=== PATIENT | male | born 1995 | race Caucasian/White ===

== ENCOUNTER → 2016-11-06 | Outpatient (REF) | payer OTHER ==
[~2016-11-06] MED LIST: ACET65TA OR; ALLE25CA OR; CETI10TA OR; VICO5TAB OR
[2016-11-06 14:20] LABS: HIV SCREEN CENTAUR NEGATIVE (NEGATIVE)
[2016-11-09 00:08] LABS: HSV TYPE I IgM AB <1:10 titer (<1:10); HSV TYPE II IgM ABY <1:10 titer (<1:10)
== END ==
LOC: M SFHCPLAZ 09:38
PROVIDERS: ATTEND Physician Assistant
DX: Z20.2 Contact with and (suspected) exposure to infections with a predominantly sexual mode of transmission (principal)

== ENCOUNTER → 2017-09-18 | Outpatient (CLI) | payer OTHER | LOC: M OUTALCOH 07:47 | DX: F15.20 Other stimulant dependence, uncomplicated (principal) ==

== ENCOUNTER 2017-09-28 08:30 | Outpatient (RCR) | payer OTHER | END 2017-10-03 | LOC: M OUTALCOH 08:30 | DX: F15.20 Other stimulant dependence, uncomplicated (principal); Z72.0 Tobacco use ==

== ENCOUNTER 2017-10-05 09:25 | Outpatient (RCR) | payer OTHER | END 2017-11-03 | LOC: M OUTALCOH 10-10 08:45 | DX: F15.20 Other stimulant dependence, uncomplicated (principal); Z72.0 Tobacco use ==

== ENCOUNTER 2017-11-05 11:15 | Outpatient (RCR) | payer OTHER | END 2017-12-03 | LOC: M OUTALCOH 11-07 16:00 | DX: F15.20 Other stimulant dependence, uncomplicated (principal); Z72.0 Tobacco use ==

== ENCOUNTER → 2017-11-20 | Outpatient (REF) | payer OTHER ==
[2017-11-20 13:18] LABS: AMPHETAMINES URINE REFLEX NEGATIVE (NEGATIVE); BARBITURATES URINE REFLEX NEGATIVE (NEGATIVE); BENZODIAZEPINES URINE REFLEX NEGATIVE (NEGATIVE); CANNABINOIDS URINE REFLEX NEGATIVE (NEGATIVE); COCAINE METABOLITE URINE REFLE NEGATIVE (NEGATIVE); METHADONE URINE REFLEX NEGATIVE (NEGATIVE); OPIATES URINE REFLEX NEGATIVE (NEGATIVE); PHENCYCLIDINE URINE REFLEX NEGATIVE (NEGATIVE)
== END ==
LOC: M OUTALCOH 12:27
DX: F15.20 Other stimulant dependence, uncomplicated (principal)

== ENCOUNTER 2017-12-05 10:01 | Outpatient (RCR) | payer OTHER | END 2018-01-03 | LOC: M OUTALCOH 12-12 16:00 | DX: F15.20 Other stimulant dependence, uncomplicated (principal); Z72.0 Tobacco use ==

== ENCOUNTER → 2017-12-18 | Outpatient (REF) | payer OTHER ==
[2017-12-19 10:58] LABS: AMPHETAMINES URINE REFLEX NEGATIVE (NEGATIVE); BARBITURATES URINE REFLEX NEGATIVE (NEGATIVE); BENZODIAZEPINES URINE REFLEX NEGATIVE (NEGATIVE); CANNABINOIDS URINE REFLEX NEGATIVE (NEGATIVE); COCAINE METABOLITE URINE REFLE NEGATIVE (NEGATIVE); METHADONE URINE REFLEX NEGATIVE (NEGATIVE); OPIATES URINE REFLEX NEGATIVE (NEGATIVE); PHENCYCLIDINE URINE REFLEX NEGATIVE (NEGATIVE)
== END ==
LOC: M OUTALCOH 10:20
DX: F15.20 Other stimulant dependence, uncomplicated (principal)

== ENCOUNTER → 2018-01-07 | Outpatient (REF) | payer OTHER ==
[2018-01-08 12:54] LABS: AMPHETAMINES URINE REFLEX NEGATIVE (NEGATIVE); BARBITURATES URINE REFLEX NEGATIVE (NEGATIVE); BENZODIAZEPINES URINE REFLEX NEGATIVE (NEGATIVE); CANNABINOIDS URINE REFLEX NEGATIVE (NEGATIVE); COCAINE METABOLITE URINE REFLE NEGATIVE (NEGATIVE); METHADONE URINE REFLEX NEGATIVE (NEGATIVE); OPIATES URINE REFLEX NEGATIVE (NEGATIVE); PHENCYCLIDINE URINE REFLEX NEGATIVE (NEGATIVE)
== END ==
LOC: M OUTALCOH 01-08 11:58
DX: F15.20 Other stimulant dependence, uncomplicated (principal)

== ENCOUNTER 2018-01-09 14:05 | Outpatient (RCR) | payer OTHER | END 2018-02-02 | LOC: M OUTALCOH 01-23 15:00 | DX: F15.20 Other stimulant dependence, uncomplicated (principal); Z72.0 Tobacco use ==

== ENCOUNTER 2018-02-08 11:20 | Outpatient (RCR) | payer OTHER | END 2018-03-05 | LOC: M OUTALCOH 02-13 15:00 | DX: F15.20 Other stimulant dependence, uncomplicated (principal); Z72.0 Tobacco use ==

== ENCOUNTER → 2018-05-01 | Outpatient (CLI) | payer OTHER | LOC: M OUTALCOH 08:20 | DX: Z13.89 Encounter for screening for other disorder (principal); F11.20 Opioid dependence, uncomplicated; F14.20 Cocaine dependence, uncomplicated; F15.20 Other stimulant dependence, uncomplicated ==

== ENCOUNTER 2018-05-09 14:00 | Outpatient (RCR) | payer OTHER | END 2018-06-05 | LOC: M OUTALCOH 05-14 09:00 | DX: F15.20 Other stimulant dependence, uncomplicated (principal); F11.20 Opioid dependence, uncomplicated; Z72.0 Tobacco use ==

== ENCOUNTER → 2018-05-23 | Outpatient (REF) | payer OTHER ==
[2018-05-23 17:38] LABS: CHOLESTEROL LEVEL 189 MG/DL (<200); CHOLESTEROL RISK RATIO 4.021 (<5); HDL CHOLESTEROL 47 MG/DL (>40); LDL CHOLESTEROL 131 MG/DL (<100); NON-HDL-C 142 MG/DL; TRIGLYCERIDES LEVEL 53 MG/DL (<150)
[2018-05-23 17:58] LABS: ESTIMATED AVERAGE GLUCOSE 103 MG/DL (60-110); HEMOGLOBIN A1c 5.2 %
== END ==
LOC: M SFHCPLAZ 15:05
DX: Z13.1 Encounter for screening for diabetes mellitus (principal); Z13.220 Encounter for screening for lipoid disorders

== ENCOUNTER 2018-06-06 16:46 | Outpatient (RCR) | payer OTHER | END 2018-07-05 | LOC: M OUTALCOH 16:46 | DX: F15.20 Other stimulant dependence, uncomplicated (principal); F11.20 Opioid dependence, uncomplicated; Z72.0 Tobacco use ==

== ENCOUNTER 2018-08-01 13:59 | Outpatient (RCR) | payer OTHER | END 2018-08-05 | LOC: M OUTALCOH 13:59 | PROVIDERS: ATTEND Psychiatry & Neurology Psychiatry | DX: F15.20 Other stimulant dependence, uncomplicated (principal); F11.20 Opioid dependence, uncomplicated; Z72.0 Tobacco use ==

== ENCOUNTER → 2018-09-05 | Outpatient (RCR) | payer OTHER | LOC: M OUTALCOH 08-07 13:59 | PROVIDERS: ATTEND Psychiatry & Neurology Psychiatry | DX: F15.20 Other stimulant dependence, uncomplicated (principal); F11.20 Opioid dependence, uncomplicated; Z72.0 Tobacco use ==

== ENCOUNTER 2018-10-02 16:00 | Outpatient (RCR) | payer OTHER | END 2018-10-03 | LOC: M OUTALCOH 16:00 | PROVIDERS: ATTEND Psychiatry & Neurology Psychiatry | DX: F15.20 Other stimulant dependence, uncomplicated (principal); F11.20 Opioid dependence, uncomplicated; Z72.0 Tobacco use ==

== ENCOUNTER 2018-10-30 16:00 | Outpatient (RCR) | payer OTHER | END 2018-11-03 | LOC: M OUTALCOH 16:00 | PROVIDERS: ATTEND Psychiatry & Neurology Psychiatry | DX: F15.20 Other stimulant dependence, uncomplicated (principal); F11.20 Opioid dependence, uncomplicated; Z72.0 Tobacco use ==

== ENCOUNTER 2018-12-02 14:53 | Outpatient (RCR) | payer OTHER | END 2018-12-03 | LOC: M OUTALCOH 14:53 | PROVIDERS: ATTEND Psychiatry & Neurology Psychiatry | DX: F15.20 Other stimulant dependence, uncomplicated (principal); F11.20 Opioid dependence, uncomplicated; Z72.0 Tobacco use ==

== ENCOUNTER 2019-01-02 16:00 | Outpatient (RCR) | payer OTHER | END 2019-01-03 | LOC: M OUTALCOH 16:00 | PROVIDERS: ATTEND Psychiatry & Neurology Psychiatry | DX: F15.20 Other stimulant dependence, uncomplicated (principal); F11.20 Opioid dependence, uncomplicated; Z72.0 Tobacco use ==

== ENCOUNTER 2019-01-30 15:36 | Outpatient (RCR) | payer OTHER | END 2019-02-02 | LOC: M OUTALCOH 15:36 | PROVIDERS: ATTEND Psychiatry & Neurology Psychiatry | DX: F15.20 Other stimulant dependence, uncomplicated (principal); F11.20 Opioid dependence, uncomplicated; Z72.0 Tobacco use ==

== ENCOUNTER 2019-02-27 16:00 | Outpatient (RCR) | payer OTHER | END 2019-03-05 | LOC: M OUTALCOH 16:00 | PROVIDERS: ATTEND Psychiatry & Neurology Psychiatry | DX: F11.20 Opioid dependence, uncomplicated (principal) ==

== ENCOUNTER 2019-04-03 15:46 | Outpatient (RCR) | payer OTHER | END 2019-04-05 | LOC: M OUTALCOH 15:46 | PROVIDERS: ATTEND Psychiatry & Neurology Psychiatry | DX: F11.20 Opioid dependence, uncomplicated (principal) ==

== ENCOUNTER → 2019-05-13 | Outpatient (REF) | payer OTHER ==
[2019-05-13 18:28] LABS: CHOLESTEROL LEVEL 155 MG/DL (<200); CHOLESTEROL RISK RATIO 2.818 (<5); HDL CHOLESTEROL 55 MG/DL (>40); LDL CHOLESTEROL 82 MG/DL (<100); NON-HDL-C 100 MG/DL; TRIGLYCERIDES LEVEL 90 MG/DL (<150)
[2019-05-13 19:21] LABS: HEMOGLOBIN A1c 5.6 %
[2019-05-13 20:35] LABS: CHLAMYDIA DNA AMPLIFICATION NEGATIVE (NEGATIVE); GC DNA AMPLIFICATION NEGATIVE (NEGATIVE)
[2019-05-14 09:16] LABS: HEPATITIS B SURFACE ANTIGEN NEGATIVE (NEGATIVE)
[2019-05-14 09:47] LABS: HEPATITIS C VIRUS ABY INDEX 0.1 INDEX (<0.8); HIV 1&2 SCREEN CENTAUR NEGATIVE (NEGATIVE)
== END ==
LOC: M SFHCPLAZ 15:54
PROVIDERS: ATTEND Family Medicine
DX: Z13.1 Encounter for screening for diabetes mellitus (principal); Z20.2 Contact with and (suspected) exposure to infections with a predominantly sexual mode of transmission; Z13.220 Encounter for screening for lipoid disorders

== ENCOUNTER → 2019-08-14 | Outpatient (CLI) | payer OTHER ==
[2019-08-15 18:22] LABS: HIV 1&2 SCREEN CENTAUR NEGATIVE (NEGATIVE)
[2019-08-18 00:06] LABS: HSV-1 DNA Negative (Negative); HSV-2 DNA Negative (Negative)
== END ==
LOC: M PLALAB 14:52
PROVIDERS: ATTEND Student in an Organized Health Care Education/Training Program
DX: Z11.3 Encounter for screening for infections with a predominantly sexual mode of transmission (principal); Z72.53 High risk bisexual behavior

== ENCOUNTER → 2019-08-14 | Outpatient (REF) | payer OTHER ==
[2019-08-14 21:29] LABS: CHLAMYDIA DNA AMPLIFICATION NEGATIVE (NEGATIVE); GC DNA AMPLIFICATION NEGATIVE (NEGATIVE)
[2019-08-19 00:06] LABS: CHLAMYDIA PHARYNGEAL APTIMA Negative (Negative); CHLAMYDIA RECTAL APTIMA Negative (Negative); GC PHARYNGEAL APTIMA Negative (Negative); GC RECTAL APTIMA Negative (Negative)
== END ==
LOC: M SFHCPLAZ 14:42
DX: Z11.3 Encounter for screening for infections with a predominantly sexual mode of transmission (principal); Z72.53 High risk bisexual behavior

== ENCOUNTER → 2019-10-08 | Outpatient (REF) | payer OTHER ==
[2019-10-08 15:03] LABS: CHLAMYDIA DNA AMPLIFICATION NEGATIVE (NEGATIVE); GC DNA AMPLIFICATION NEGATIVE (NEGATIVE)
== END ==
LOC: M SFHCPLAZ 09:06
PROVIDERS: ATTEND Family Medicine
DX: Z11.3 Encounter for screening for infections with a predominantly sexual mode of transmission (principal)

== ENCOUNTER → 2019-11-17 | Outpatient (REF) | payer OTHER ==
[2019-11-17 15:06] LABS: CHLAMYDIA DNA AMPLIFICATION NEGATIVE (NEGATIVE); GC DNA AMPLIFICATION NEGATIVE (NEGATIVE); HIV 1&2 SCREEN CENTAUR NEGATIVE (NEGATIVE)
== END ==
LOC: M SFHCPLAZ 11:27
PROVIDERS: ATTEND Student in an Organized Health Care Education/Training Program
DX: Z20.2 Contact with and (suspected) exposure to infections with a predominantly sexual mode of transmission (principal)

== ENCOUNTER → 2020-09-18 | Outpatient (REF) | payer OTHER ==
[2020-09-18 19:21] LABS: CHLAMYDIA DNA AMPLIFICATION NEGATIVE (NEGATIVE); GC DNA AMPLIFICATION NEGATIVE (NEGATIVE)
== END ==
LOC: M LAB REF 17:12
PROVIDERS: ATTEND Physician Assistant
DX: K62.9 Disease of anus and rectum, unspecified (principal); Z72.52 High risk homosexual behavior

== ENCOUNTER → 2020-09-21 | Outpatient (REF) | payer OTHER ==
[2020-09-23 05:10] LABS: CHLAMYDIA RECTAL APTIMA Positive (Negative); GC RECTAL APTIMA Negative (Negative)
== END ==
LOC: M WUC 09:15
PROVIDERS: ATTEND Physician Assistant
DX: K62.9 Disease of anus and rectum, unspecified (principal); Z72.52 High risk homosexual behavior

== ENCOUNTER → 2020-09-27 | Outpatient (REF) | payer OTHER ==
[2020-10-01 07:10] LABS: CHLAMYDIA RECTAL APTIMA Positive (Negative); GC RECTAL APTIMA Negative (Negative)
== END ==
LOC: M SFHCPLAZ 14:30
PROVIDERS: ATTEND Student in an Organized Health Care Education/Training Program
DX: A64 Unspecified sexually transmitted disease (principal)

== ENCOUNTER → 2020-09-27 | Outpatient (REF) | payer OTHER ==
[2020-09-27 18:57] LABS: HEPATITIS B SURFACE ANTIBODY POSITIVE (POSITIVE); HEPATITIS B SURFACE ANTIGEN NEGATIVE (NEGATIVE); HIV 1&2 SCREEN CENTAUR NEGATIVE (NEGATIVE)
== END ==
LOC: M SFHCPLAZ 14:48
PROVIDERS: ATTEND Family Medicine
DX: A64 Unspecified sexually transmitted disease (principal)

== ENCOUNTER → 2020-11-09 | Outpatient (CLI) | payer OTHER ==
[2020-11-12 10:08] LABS: CHLAMYDIA RECTAL APTIMA Negative (Negative); GC RECTAL APTIMA Negative (Negative)
== END ==
LOC: M WUC 14:13
PROVIDERS: ATTEND Physician Assistant
DX: K62.9 Disease of anus and rectum, unspecified (principal); Z72.52 High risk homosexual behavior

== ENCOUNTER → 2021-04-17 | Outpatient (REF) | payer OTHER | LOC: M WUC 17:31 | PROVIDERS: ATTEND Physician Assistant | DX: Z72.52 High risk homosexual behavior (principal) ==

== ENCOUNTER → 2021-04-28 | Outpatient (CLI) | payer BC, OTHER ==
[2021-04-28 13:34] LABS: ALBUMIN 3.6 GM/DL (3.2-5.2); ALT/SGPT 115 U/L (12-78); BILIRUBIN,DIRECT 0.1 MG/DL (0.0-0.2); BILIRUBIN,TOTAL 0.3 MG/DL (0.2-1.0); TOTAL PROTEIN 6.6 GM/DL (6.4-8.2)
[2021-04-28 13:53] LABS: HEPATITIS B SURFACE ANTIGEN NEGATIVE (NEGATIVE)
[2021-04-28 14:06] LABS: GC DNA AMPLIFICATION NEGATIVE (NEGATIVE)
[2021-04-28 14:22] LABS: HIV 1&2 SCREEN CENTAUR NEGATIVE (NEGATIVE)
[2021-04-28 14:23] LABS: HEPATITIS A ANTIBODY IGM NEGATIVE (NEGATIVE)
== END ==
LOC: M PLALAB 09:35
PROVIDERS: ATTEND Family Medicine
DX: Z11.3 Encounter for screening for infections with a predominantly sexual mode of transmission (principal); F15.10 Other stimulant abuse, uncomplicated

== ENCOUNTER → 2021-04-28 | Outpatient (REF) | payer OTHER | LOC: M SFHCPLAZ 09:15 | PROVIDERS: ATTEND Family Medicine | DX: Z11.3 Encounter for screening for infections with a predominantly sexual mode of transmission (principal); F15.10 Other stimulant abuse, uncomplicated ==

== ENCOUNTER → 2021-09-23 | Outpatient (CLI) | payer BC, OTHER ==
[~2021-09-23] MED LIST changes: +BUPR150T5; +LEXA5TAB13
== END ==
LOC: M LABSMTC 12:35
PROVIDERS: ATTEND Anesthesiology
DX: Z01.818 Encounter for other preprocedural examination (principal); Z11.52 Encounter for screening for COVID-19

== ENCOUNTER 2021-09-28 09:43 | Day surgery (SDC) | payer BC, OTHER ==
[~2021-09-28] VITALS: Ht 177.8 cm; Wt 74.3 kg
[~2021-09-28 09:43] MED LIST changes: +NS 1,000 ML IV ONE
[2021-09-28] MEDS ORDERED: propofoL 200 MG/20 ML VIAL As Ordered ONE (11:56)
[2021-09-28] MEDS ORDERED: fentaNYL 100 MCG/2 ML INJECTION As Ordered ONE (11:56)
[2021-09-28] MEDS ORDERED: LIDOCAINE 2% MDV 20ML VIAL As Ordered ONE (11:56)
[2021-09-28 14:02] VITALS: BP 123/60
== END 2021-09-28 14:20 | disposition home or self-care (01) ==
LOC: M OPP 09:43
PROVIDERS: ATTEND Surgery
DX: K63.5 Polyp of colon (principal); R19.4 Change in bowel habit; R10.31 Right lower quadrant pain; R10.32 Left lower quadrant pain; R10.33 Periumbilical pain; K31.89 Other diseases of stomach and duodenum; Z79.899 Other long term (current) drug therapy; F17.210 Nicotine dependence, cigarettes, uncomplicated
CPT/HCPCS: 43239; 45385; 88305; J3010

== ENCOUNTER → 2021-09-30 | Outpatient (CLI) | payer OTHER ==
[~2021-09-30] MED LIST changes: -NS 1,000 ML IV ONE
[2021-09-30 16:03] LABS: HIV 1&2 SCREEN CENTAUR NEGATIVE (NEGATIVE)
[2021-09-30 16:26] LABS: GC DNA AMPLIFICATION NEGATIVE (NEGATIVE)
[2021-10-01 19:07] LABS: HSV IgM TYPES 1&2 <0.91 Ratio (0.00-0.90)
== END ==
LOC: M PLALAB 10:43
PROVIDERS: ATTEND Family Medicine
DX: Z20.828 Contact with and (suspected) exposure to other viral communicable diseases (principal)

== ENCOUNTER → 2021-09-30 | Outpatient (REF) | payer OTHER | LOC: M SFHCPLAZ 10:26 | PROVIDERS: ATTEND Family Medicine | DX: Z20.828 Contact with and (suspected) exposure to other viral communicable diseases (principal); Z53.8 Procedure and treatment not carried out for other reasons ==

== ENCOUNTER → 2022-05-10 | Outpatient (CLI) | payer OTHER ==
[~2022-05-10] MED LIST changes: +BUPR-71; -BUPR150T5
[2022-05-10 14:50] LABS: ALBUMIN 4.5 GM/DL (3.2-5.2); ALT/SGPT 38 U/L (12-78); BILIRUBIN,TOTAL 0.4 MG/DL (0.2-1.0); BLOOD UREA NITROGEN 15 MG/DL (7-18); CALCIUM LEVEL 9.5 MG/DL (8.5-10.1); CARBON DIOXIDE LEVEL 30 MEQ/L (21-32); CHLORIDE LEVEL 106 MEQ/L (98-107); CREATININE FOR GFR 0.93 MG/DL (0.70-1.30); GLOMERULAR FILTRATION RATE > 60.0 (>60); GLUCOSE, FASTING 90 MG/DL (70-100); POTASSIUM SERUM 4.4 MEQ/L (3.5-5.1); SODIUM LEVEL 139 MEQ/L (136-145); TOTAL PROTEIN 7.7 GM/DL (6.4-8.2)
== END ==
LOC: M PLALAB 09:50
PROVIDERS: ATTEND Student in an Organized Health Care Education/Training Program
DX: R74.01 Elevation of levels of liver transaminase levels (principal)

== ENCOUNTER → 2022-05-19 | Outpatient (CLI) | payer OTHER | LOC: M OUTALCOH 08:25 | PROVIDERS: ATTEND Psychiatry & Neurology Psychiatry | DX: Z13.39 Encounter for screening examination for other mental health and behavioral disorders (principal) ==

== ENCOUNTER 2022-05-31 15:00 | Outpatient (RCR) | payer OTHER | END 2022-06-05 | LOC: M OUTALCOH 15:00 | PROVIDERS: ATTEND Psychiatry & Neurology Psychiatry | DX: F10.20 Alcohol dependence, uncomplicated (principal); F15.20 Other stimulant dependence, uncomplicated ==

== ENCOUNTER 2022-06-14 13:54 | Emergency (ER) | payer OTHER, BC ==
[~2022-06-14] VITALS: Ht 180.3 cm; Wt 79.2 kg
[2022-06-14] MEDS ORDERED: NALT50TA4 (14:00)
[2022-06-14] MEDS ORDERED: LIDOCAINE 5% (LIDODERM) PATCH TD ONE (16:30)
[2022-06-14] MEDS ORDERED: ACETAMINOPHEN 500 MG TAB PO ONE (16:30)
[2022-06-14 17:07] LABS: BASO # 0.1 10^3/uL (0.0-0.2); BASO % 0.3 % (0.0-1.0); EOS # 0.2 10^3/uL (0.0-0.5); EOS % 0.9 % (0.0-3.0); HEMATOCRIT 45.7 % (42.0-52.0); HEMOGLOBIN 15.7 g/dl (13.5-17.5); LYMPH # 1.8 10^3/uL (1.5-5.0); LYMPH % 10.4 % (24.0-44.0); MEAN CORPUSCULAR HEMOGLOBIN 29.2 pg (27.0-33.0); MEAN CORPUSCULAR HGB CONC 34.4 g/dl (32.0-36.5); MEAN CORPUSCULAR VOLUME 85.1 fl (80.0-96.0); MONO % 5.9 % (2.0-8.0); NEUTROPHILS # 13.9 10^3/uL (1.5-8.5); NEUTROPHILS % 81.8 % (36.0-66.0); PLATELET COUNT, AUTOMATED 284 10^3/uL (150-450); RED BLOOD COUNT 5.37 10^6/uL (4.30-6.10); WHITE BLOOD COUNT 17.1 10^3/uL (4.0-10.0)
[2022-06-14 17:09] LABS: APPEARANCE, URINE MANUAL CLEAR (CLEAR); COLOR, URINE MANUAL YELLOW (YELLOW)
[2022-06-14 17:10] LABS: BILIRUBIN, URINE MANUAL NEGATIVE (NEGATIVE); BLOOD URINE MANUAL TRACE (NEGATIVE); GLUCOSE, URINE (UA) MANUAL NEGATIVE (NEGATIVE); KETONE, URINE MANUAL NEGATIVE (NEGATIVE); LEUKOCYTE ESTERASE, URINE MAN TRACE (NEGATIVE); NITRITE, URINE MANUAL NEGATIVE (NEGATIVE); PROTEIN, URINE MANUAL TRACE mg/dL (NEGATIVE); UROBILINOGEN, URINE MANUAL NORMAL (NORMAL)
[2022-06-14] MEDS ORDERED: ISOVUE-370 76% 100ML VIAL As Ordered ONE (17:13)
[2022-06-14] MEDS ORDERED: LIDO5DIS41 TOP (17:34)
[2022-06-14 17:46] LABS: BACTERIA, URINE SMALL AMOUNT; MUCUS, URINE SMALL AMOUNT (NEGATIVE); RBC, URINE 0-1 /hpf (0-3); SQUAMOUS EPITHELIAL CELL URINE SMALL AMOUNT /hpf (SMALL AMT); WBC, URINE 0-1 /hpf (0-3)
[2022-06-14 17:57] LABS: ALBUMIN 4.4 GM/DL (3.2-5.2); ALT/SGPT 35 U/L (12-78); BILIRUBIN,DIRECT < 0.1 MG/DL (0.0-0.2); BILIRUBIN,TOTAL 0.3 MG/DL (0.2-1.0); LIPASE 126 U/L (73-393); TOTAL PROTEIN 7.4 GM/DL (6.4-8.2)
[2022-06-14] MEDS ORDERED: KETO10TAB PO (20:32)
[2022-06-14] MEDS ORDERED: COLA100C5 PO (20:34)
[2022-06-14 20:42] VITALS: BP 143/85
[2022-06-14] MEDS ORDERED: KETOROLAC TROMETHAMINE 10 MG TAB PO ONE ×2 (20:50)
== END 2022-06-14 21:08 | disposition home or self-care (01) ==
LOC: M ED 13:54
DX: S22.040A Wedge compression fracture of fourth thoracic vertebra, initial encounter for closed fracture (principal); S22.050A Wedge compression fracture of T5-T6 vertebra, initial encounter for closed fracture; S20.20XA Contusion of thorax, unspecified, initial encounter; S30.0XXA Contusion of lower back and pelvis, initial encounter; S30.810A Abrasion of lower back and pelvis, initial encounter; W10.9XXA Fall (on) (from) unspecified stairs and steps, initial encounter; K59.00 Constipation, unspecified; F41.9 Anxiety disorder, unspecified; F32.9 Major depressive disorder, single episode, unspecified; Z79.899 Other long term (current) drug therapy

== ENCOUNTER → 2022-07-05 | Outpatient (RCR) | payer OTHER ==
[~2022-07-05] MED LIST changes: +COLA100C5 PO; +KETO10TAB PO; +LIDO5DIS41 TOP; +NALT50TA4
== END ==
LOC: M OUTALCOH 06-06 16:00
PROVIDERS: ATTEND Psychiatry & Neurology Psychiatry
DX: F10.20 Alcohol dependence, uncomplicated (principal); F15.20 Other stimulant dependence, uncomplicated

== ENCOUNTER → 2022-09-04 | Outpatient (REF) | payer OTHER | LOC: M SFHCPLAZ 14:00 | PROVIDERS: ATTEND Family Medicine | DX: Z53.9 Procedure and treatment not carried out, unspecified reason (principal) ==

== ENCOUNTER → 2022-10-30 | Outpatient (CLI) | payer OTHER, BC ==
[2022-10-30 15:48] LABS: ALBUMIN 4.3 G/DL (3.2-5.2); ALKALINE PHOSPHATASE 56 U/L (46-116); ALT/SGPT 22 U/L (7.0-40); AST/SGOT 25 U/L (<34); BILIRUBIN,TOTAL 0.6 MG/DL (0.3-1.2); BLOOD UREA NITROGEN 14 MG/DL (9-23); CALCIUM LEVEL 8.7 MG/DL (8.5-10.1); CARBON DIOXIDE LEVEL 29 MMOL/L (20-31); CHLORIDE LEVEL 105 MMOL/L (98-107); CREATININE FOR GFR 0.93 MG/DL (0.70-1.30); GLOMERULAR FILTRATION RATE > 60.0 (>60); GLUCOSE, FASTING 104 MG/DL (60-100); POTASSIUM SERUM 4.4 MMOL/L (3.5-5.1); SODIUM LEVEL 141 MMOL/L (136-145); TOTAL PROTEIN 6.7 G/DL (5.7-8.2)
== END ==
LOC: M PLALAB 12:42
PROVIDERS: ATTEND Student in an Organized Health Care Education/Training Program
DX: F10.20 Alcohol dependence, uncomplicated (principal)

== ENCOUNTER → 2022-12-20 | Outpatient (CLI) | payer BC, OTHER ==
[2022-12-20 17:46] LABS: ALBUMIN 4.5 G/DL (3.2-5.2); ALKALINE PHOSPHATASE 56 U/L (46-116); ALT/SGPT 30 U/L (7.0-40); AST/SGOT 24 U/L (<34); BILIRUBIN,TOTAL 0.5 MG/DL (0.3-1.2); BLOOD UREA NITROGEN 12 MG/DL (9-23); CALCIUM LEVEL 9.6 MG/DL (8.5-10.1); CARBON DIOXIDE LEVEL 30 MMOL/L (20-31); CHLORIDE LEVEL 106 MMOL/L (98-107); CREATININE FOR GFR 0.99 MG/DL (0.70-1.30); GLOMERULAR FILTRATION RATE > 60.0 (>60); GLUCOSE, FASTING 85 MG/DL (60-100); POTASSIUM SERUM 4.5 MMOL/L (3.5-5.1); SODIUM LEVEL 141 MMOL/L (136-145); TOTAL PROTEIN 6.9 G/DL (5.7-8.2)
== END ==
LOC: M PLALAB 15:15
PROVIDERS: ATTEND Student in an Organized Health Care Education/Training Program
DX: F10.20 Alcohol dependence, uncomplicated (principal)

== ENCOUNTER → 2024-11-07 | Outpatient (CLI) | payer BC ==
[2024-11-07 17:12] LABS: HEMATOCRIT 45.4 % (42.0-52.0); HEMOGLOBIN 15.5 g/dl (13.5-17.5); MEAN CORPUSCULAR HEMOGLOBIN 29.4 pg (27.0-33.0); MEAN CORPUSCULAR HGB CONC 34.1 g/dl (32.0-36.5); MEAN CORPUSCULAR VOLUME 86.1 fl (80.0-96.0); PLATELET COUNT, AUTOMATED 288 10^3/uL (150-450); RED BLOOD COUNT 5.27 10^6/uL (4.30-6.10); WHITE BLOOD COUNT 8.1 10^3/uL (4.0-10.0)
[2024-11-07 17:38] LABS: FREE T4 1.12 NG/DL (0.89-1.76); TESTOSTERONE 361 NG/DL (241-827); THYROID STIMULATING HORMONE 0.744 uIU/ML (0.55-4.78)
[2024-11-07 18:08] LABS: HIV 1&2 SCREEN NEGATIVE (NEGATIVE)
[2024-11-07 18:31] LABS: GC DNA AMPLIFICATION NEGATIVE (NEGATIVE)
[2024-11-07 18:32] LABS: GC DNA AMPLIFICATION NEGATIVE (NEGATIVE)
== END ==
LOC: M PLALAB 16:14
DX: Z11.3 Encounter for screening for infections with a predominantly sexual mode of transmission (principal); R53.83 Other fatigue

== ENCOUNTER → 2024-11-07 | Outpatient (REF) | payer BC | LOC: M SFHCPLAZ 16:09 | PROVIDERS: ATTEND Family Medicine | DX: Z11.3 Encounter for screening for infections with a predominantly sexual mode of transmission (principal) ==

== ENCOUNTER → 2025-07-24 | Outpatient (CLI) | payer BC ==
[~2025-07-24] MED LIST changes: +LIDO1ADH93 TOP; -LIDO5DIS41 TOP
[2025-07-24 14:51] LABS: ALT/SGPT 26 U/L (7.0-40); AST/SGOT 35 U/L (<34); CALCIUM LEVEL 9.3 MG/DL (8.5-10.1); CARBON DIOXIDE LEVEL 27 MMOL/L (20-31); CHLORIDE LEVEL 106 MMOL/L (98-107); CREATININE FOR GFR 1.02 MG/DL (0.70-1.30); GLOMERULAR FILTRATION RATE > 90.0 (>60); POTASSIUM SERUM 5.5 MMOL/L (3.5-5.1); SODIUM LEVEL 143 MMOL/L (136-145)
[2025-07-24 15:15] LABS: HIV 1&2 SCREEN NEGATIVE (NEGATIVE)
[2025-07-24 15:46] LABS: GC DNA AMPLIFICATION NEGATIVE (NEGATIVE)
== END ==
LOC: M PLALAB 09:40
DX: Z72.53 High risk bisexual behavior (principal)

== ENCOUNTER → 2025-07-24 | Outpatient (REF) | payer BC ==
[2025-07-24 15:51] LABS: GC DNA AMPLIFICATION NEGATIVE (NEGATIVE)
== END ==
LOC: M SFHCPLAZ 08:53
PROVIDERS: ATTEND Family Medicine
DX: Z72.53 High risk bisexual behavior (principal); Z79.899 Other long term (current) drug therapy